=== PATIENT | female | born 1970 | race Caucasian/White ===

== ENCOUNTER → 2023-01-15 14:45 | Outpatient (BNVA) | payer OTHER, SELFPAY | PROVIDERS: PCP Nurse Practitioner; Visit Provider Nurse Practitioner Family | DX: J02.9 Acute pharyngitis, unspecified (principal) | CPT/HCPCS: 87071; 87880 ==

== ENCOUNTER 2024-01-31 07:08 | Emergency (ER) | payer BC, MEDICAID, SELFPAY ==
[2024-01-31 07:12] VITALS: BP 106/68; PULSE 100; RESP 16; TEMP 36.9; O2SAT 96; BMI 20.7
--- NOTE | 2024-01-31 07:17 | ED_ITS ---
HPI - Abdominal Pain 2 General: Chief Complaint: Abdominal Pain Stated Complaint: abd pain, chills, fever, nausea Time Seen by Provider: 01/31/24 07:11 Source: patient Mode of arrival: ambulatory History of Present Illness: 53-year-old female presents emergency ro om with abdominal pain for the last week particularly bad the last 3 days. Flulike symptoms initially localizes pain to the right lower quadrant. She has previously had a cholecystectomy. She did have some acholic stools earlier this week. No hematochezia melena hematemesis or coffee-ground emesis no dysuria urgency or frequency or hematuria. No history of kidney stones. She has previously had cholecystectomy partial resection of the pancreas and the spleen. MD elicited complaint: abdominal pain Onset (ago): day(s) Pain Consistency: constant Location: RLQ Severity: severe Quality: cramping Exacerbating factors: eating and movement Relieving factors: rest Associated Symptoms: Reports change in stool character and GI cramping; Denies anorexia, belching, bloating, change in bowel habits, chills, coffee ground emesis, constipation, diarrhea, dyspepsia, dysuria, excessive flatus, fever(s), heartburn, hematochezia, hematuria, hematemesis, fecal incontinence, loose stools, melena, nausea, poor appetite, syncope and vomiting Review of Systems 2 Const: Denies: fever(s) or chills Card: Denies: chest pain or syncope Resp: Denies: dyspnea GI: Reports: abdominal pain, GI cramping and change in stool character; Denies: nausea, vomiting, hematemesis, coffee ground emesis, heartburn, diarrhea, constipation, bloating, belching, excessive flatus, fecal incontinence, change in bowel habits, hematochezia or melena : Denies: dysuria, urinary frequency, urinary urgency or hematuria Musc: Denies: neck pain or back pain Skin/Breast: Denies: rash PFSH ED 2 PFSH: Medical History Lyme disease History of herpes simplex infection Nasal after NG tube age 15 Asthma Surgical History 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 History of cholecystectomy Family History Grandmother Dementia Mother Dementia Brother Cancer Melanoma Other Hypertension Stroke Denies family history of Diabetes Chronic kidney disease (CKD) Lung disease Social History Smoking and tobacco/nicotine status: current every day tobacco/nicotine user Second hand smoke exposure: No Alcohol intake: former Substance/Drug Use: unknown Adopted: No Caregiver/support person: No Lives independently: Yes Household members: spouse Housing: House Marital status: Number of children: 6 service: No Current occupational status: employed Current occupation: Self Pets and animals: Yes Do you think of yourself as: Straight/Heterosexual Current gender identity: Female Physical Exam 2 Const: GENERAL APPEARANCE: cooperative and comfortable O RIENTATION/CONSCIOUSNESS: Yes awake, Yes oriented to person, Yes oriented to place and Yes oriented to time HENMT: COMMON NORMALS: normocephalic, atraumatic and hearing grossly normal bilaterally HEAD & SCALP: normocephalic and atraumatic Resp: COMMON NORMALS: normal respiratory effort, No retractions, No use of accessory muscles and clear to auscultation bilaterally AUSCULTATION: clear to auscultation bilaterally Cardio: COMMON NORMALS: regular rate, regular rhythm and No murmurs present (Cardio) RATE: regular rate RHYTHM: regular rhythm GI: COMMON NORMALS: No hepatosplenomegaly present AUSCULTATION: Yes normoactive bowel sounds PALPATION: Yes Tenderness to palpation present (GI) Details: RLQ, No Guarding due to palpation present (GI) and Yes No hepatosplenomegaly present Extremity: COMMON NORMALS: normal to inspection, capillary refill normal, no clubbing, cyanosis or edema, no calf tenderness and no pedal edema Neuro: SENSORIUM/ORIENTATION: Yes oriented to person, Yes oriented to place and Yes oriented to time Skin: COMMON NORMALS: no rashes or lesions noted GENERAL SKIN EXAM: no rashes or lesions noted Course 2 Vital Signs: Vital signs: Vital Signs Temperature 98.4 F 01/31/24 07:12 Pulse Rate 85 01/31/24 11:02 Respiratory Rate 16 01/31/24 11:01 Blood Pressure 102/72 01/31/24 11:02 Pulse Oximetry 96 01/31/24 11:02 Oxygen Delivery Me thod Room Air 01/31/24 11:02 MDM - Abdominal Pain Medical Decision Making Patient has markedly elevated liver enzymes clinically appears jaundiced confirmed by laboratory studies. She has previously had a cholecystectomy she is reporting intermittent fevers over the last week cultures done lactic acid normal uric acid slightly low. Her LDH is elevated. Later in the visit the mentioned that she had several tick bites this spring tick panel will be added she. She has not had any rash. Reviewed with Dr. Tucker with Dr. Orlando are both on-call they recommend transfer because of her liver abnormalities she possibly may have an ascending cholangitis she also will need evaluation for lymphoma or leukemia. Discussed with transfer center at [facility] Dr. Corey will accept on transfer transfer via ambulance for Medical Records I reviewed the patient's medical records. Lab Data I reviewed the patient's lab results. 01/31/24 07:39 01/31/24 07:39 Labs/Radiology: Laboratory Results WBC 13.55 10^3/uL (3.29-11.43) H 01/31/24 07:39 RBC 3.56 10^6/uL (3.85-5.65) L 01/31/24 07:39 Hgb 11.60 g/dL (11.27-16.99) 01/31/24 07:39 Hct 32.9 % (36-47) L 01/31/24 07:39 MCV 92.4 fl (85-98) 01/31/24 07:39 MCH 32.6 pg (27-33) 01/31/24 07:39 MCHC 35.3 g/dL (30-55) 01/31/24 07:39 RDW 13.0 % (12.1-15.1) 01/31/24 07:39 Plt Count 96 10^3/cmm (157-399) L 01/31/24 07:39 MPV 10.0 fL (7.4-10.4) 01/31/24 07:39 Lymph % (Auto) Not Reportable 01/31/24 07:39 Cotton % (Auto) Not Reportable 01/31/24 07:39 Lymph # (Auto) Not Reportable 01/31/24 07:39 Cotton # (Auto) Not Reportable 01/31/24 07:39 Total Counted 100 (0-100) 01/31/24 07:39 Atypical Lymphs % 38.0 % (0-5) H 01/31/24 07:39 Absolute Neutrophils 1.2 10^3/cmm (1.4-6.5) L 01/31/24 07:39 Segmented Neutrophils 9 % 01/31/24 07:39 Abs Segm Neuts (Man) 1.2 10/cmm (1.6-7.1) L 01/31/24 07:39 Band Neutrophils 0.0 % 01/31/24 07:39 Abs Band Neuts (Man) 0.0 10^3/cmm (0.0-1.2) 01/31/24 07:39 Absolute Lymphocytes 11.8 10^3/cmm (1.2-3.4) H 01/31/24 07:39 Lymphocytes (Manual) 49 % 01/31/24 07:39 Monocytes (Manual) 4.0 % 01/31/24 07:39 Absolute Monocytes 0.5 10^3/cmm (0.1-0.6) 01/31/24 07:39 Eosinophils (Manual) 0 % 01/31/24 07:39 Absolute Eosinophils 0.0 10^3/cmm (0.0-0.7) 01/31/24 07:39 Basophils (Manual) 0.0 % 01/31/24 07:39 Absolute Basophils 0.0 10^3/cmm (0.0-0.2) 01/31/24 07:39 Metamyelocytes 0.0 % 01/31/24 07:39 Myelocytes 0.0 % 01/31/24 07:39 Platelet Estimate Decreased (Normal) L 01/31/24 07:39 PT 13.20 SECONDS (12.1-14.9) 01/31/24 12:33 INR 0.97 (0.8-1.2) 01/31/24 12:33 APTT 24.4 SECONDS (23.9-36.7) 01/31/24 12:33 Sodium 135 mmol/L (136-145) L 01/31/24 07:39 Potassium 3.3 mmol/L (3.5-5.1) L 01/31/24 07:39 Chloride 104 mmol/L (98-107) 01/31/24 07:39 Carbon Dioxide 22 mmol/L (22-29) 01/31/24 07:39 Anion Gap 12.3 (5-19) 01/31/24 07:39 BUN 8 mg/dL (6-20) 01/31/24 07:39 Creatinine 0.4 mg/dL (0.5-0.9) L 01/31/24 07:39 GFR Calculation 168.3 mL/min (90-130) H 01/31/24 07:39 Glucose 131 mg/dL (65-115) H 01/31/24 07:39 Calculated Osmolality 280 mOsm/kg (285-295) L 01/31/24 07:39 Lactic Acid 1.0 mmol/L (0.5-2.2) 01/31/24 11:18 Uric Acid 2.1 mg/dL (2.4-5.7) L 01/31/24 07:39 Calcium 8.2 mg/dL (8.5-10.5) L 01/31/24 07:39 Phosphorus 1.9 mg/dL (2.5-4.5) L 01/31/24 07:39 Total Bilirubin 3.1 mg/dL (0.15-1.2) H 01/31/24 07:39 AST 168 U/L (0-32) H 01/31/24 07:39 ALT 330 U/L (0-33) H 01/31/24 07:39 Alkaline Phosphatase 703 U/L (35-105) H 01/31/24 07:39 Lactate Dehydrogenase 603 U/L (135-214) H 01/31/24 07:39 Total Protein 5.3 g/dL (6.6-8.7) L 01/31/24 07:39 Albumin 3.3 g/dL (3.5-5.2) L 01/31/24 07:39 Globulin 2.0 g/dL (1.3-4.6) 01/31/24 07:39 Urine Color Yellow (Yellow) 01/31/24 07:48 Urine Appearance Clear (CLEAR) 01/31/24 07:48 Urine pH 6.5 (5-7) 01/31/24 07:48 Ur Specific [place] 1.010 (1.005-1.030) 01/31/24 07:48 Urine Protein Neg (Negative) 01/31/24 07:48 Urine Glucose (UA) Norm (Normal) 01/31/24 07:48 Urine Ketones Negative (Negative) 01/31/24 07:48 Urine Blood 2+ (Negative) H 01/31/24 07:48 Urine Nitrate Negative (Negative) 01/31/24 07:48 Urine Bilirubin 1+ (Negative) H 01/31/24 07:48 Urine Urobilinogen Neg mg/dL (Negative) 01/31/24 07:48 Ur Leukocyte Esterase Negative (Negative) 01/31/24 07:48 Urine RBC 5-10 /hpf (0-2) H 01/31/24 07:48 Urine WBC 0-4 /hpf (0-5) H 01/31/24 07:48 Ur Squamous Epith Cells 5-10 /hpf (0-5) H 01/31/24 07:48 Amorphous Sediment Not Reportable 01/31/24 07:48 Urine Bacteria 1+ /hpf (NONE) H 01/31/24 07:48 Urine Mucus Trace /hpf 01/31/24 07:48 All radiology interpretation(s) finalized by discharge Discharge Plan Discharge Patient Disposition: Xfer Short-Term Hosp Clinical Impression: Lymphocytosis, Elevated transaminase level Condition: Stable Referrals: Kia Cobb, SH[employer]EL LOADER OPERATOR-C [Primary Care Provider] - Coding Level of Care Code ED [employer] Flanger for Susan Gardiner
[2024-01-31 07:34] VITALS: PULSE 97; O2SAT 98
--- NOTE | 2024-01-31 07:36 | CT_ITS ---
WS: [id number] Examination: CT abdomen pelvis wo con [id number] Reason for Exam: Abdominal pain Date: January 31, 2024 Comparison: None. DLP: 535.[address] scans at [facility] use at least one of these dose optimization techniques: automated e xposure control; mA and/or kV adjustment per patient size (includes targeted exams where dose is matc hed to clinical indication); or iterative reconstruction. Findings: The heart is normal in size. Small bilateral pleural effusions are identified with limited basilar at electasis. The liver is mildly prominent in size. There has been a cholecystectomy. There is significant splenomegaly. No adrenal mass is identified. The kidneys are without kidney stone or hydronephrosis. The aorta is not enlarged. The pancreas is grossly unremarkable There is no small bowel obstruction. There is increased stool in the colon. The appendix is unremarka ble. There is free fluid identified within the abdomen and pelvis. No free air is identified. Numerous enlarged lymph nodes are identified throughout the abdomen/pelvis particularly mesentery. En larged inguinal lymph nodes are present. Posterior Mattock or surgical changes to the right hip are noted. Impression: Small pleural effusions are noted. There is free fluid throughout the abdomen and pelvis. There is hepatomegaly and prominent splenomegaly. Numerous abnormally enlarged lymph nodes are identified throughout the abdomen and pelvis. These findings are concerning for potential malignant disease such as lymphoma or leukemia. Infectiou s/inflammatory etiologies are also potential etiologies. I discussed these findings with Dr. Paredes in the emergency room at 8:25 a.m. January 31, 2024.
[2024-01-31 07:45] LABS: Hematocrit 32.9 % (36-47); Mean Corpuscular HGB Conc 35.3 g/dL (30-55); Mean Corpuscular Hemoglobin 32.6 pg (27-33); Mean Corpuscular Volume 92.4 fl (85-98); Platelet Count 96 10^3/cmm (157-399); Red Blood Count 3.56 10^6/uL (3.85-5.65); White Blood Count 13.55 10^3/uL (3.29-11.43)
--- NOTE | 2024-01-31 07:49 | PC.PHAR ---
pt states she takes care of her own medications-pt states she only has prescription inhalers that she uses prn-pt states takes no other prescription medications states just takes the otc meds entered
[2024-01-31 08:00] LABS: Alanine Aminotransferase 330 U/L (0-33); Albumin Level 3.3 g/dL (3.5-5.2); Alkaline Phosphatase 703 U/L (35-105); Anion Gap 12.3 (5-19); Aspartate Amino Transferase 168 U/L (0-32); Blood Urea Nitrogen 8 mg/dL (6-20); Calcium 8.2 mg/dL (8.5-10.5); Carbon Dioxide 22 mmol/L (22-29); Chloride 104 mmol/L (98-107); Creatinine Clr Calc Pharmacy 171.0562; Glomerular Filtration Rate 168.3 mL/min (90-130); Glucose 131 mg/dL (65-115); Osmolality Calculated 280 mOsm/kg (285-295); Potassium 3.3 mmol/L (3.5-5.1); Sodium 135 mmol/L (136-145); Total Bilirubin 3.1 mg/dL (0.15-1.2); Total Protein 5.3 g/dL (6.6-8.7)
[2024-01-31 08:08] LABS: Urine Appearance Clear (CLEAR); Urine Color Yellow (Yellow)
[2024-01-31 08:09] LABS: Add Urine Microscopic? YES; Bilirubin Urine 1+ (Negative); Blood Urine 2+ (Negative); Glucose Urine UA Norm (Normal); Ketones Urine Negative (Negative); Leukocyte Esterase Urine Negative (Negative); Nitrate Urine Negative (Negative); Protein Urine Neg (Negative); Urobilinogen Urine Neg (Negative); pH Urine 6.5 (5-7)
[2024-01-31 08:10] LABS: WBC Urine 0-4 /hpf (0-5)
[2024-01-31 08:11] LABS: Add Urine Culture? No; Bacteria Urine 1+ /hpf; Mucus Urine TRACE /hpf
[2024-01-31 08:25] LABS: Slide Review Slide Review Perform
[2024-01-31 08:26] LABS: Total Cells Counted 100 (0-100)
[2024-01-31 08:27] LABS: Absolute Segmented Neutrophil 1.2 10/cmm (1.6-7.1); Eosinophils 0 %; Lymphocytes 49 %; Lymphocytes Absolute 11.8 10^3/cmm (1.2-3.4); Monocytes Absolute 0.5 10^3/cmm (0.1-0.6); Segmented Neutrophils 9 %
[2024-01-31 08:28] LABS: Absolute Neutrophil 1.2 10^3/cmm (1.4-6.5); Platelet Estimate Decreased (Normal)
[2024-01-31] MEDS: ketorolac 30 mg/mL INJ IVP (08:46)
[2024-01-31 09:03] LABS: Lactate Dehydrogenase 603 U/L (135-214)
--- NOTE | 2024-01-31 09:29 | PC.NURSE ---
Medication Delay: Fortaz 2,000mg delayed d/t waiting on blood cultures to be drawn.
--- NOTE | 2024-01-31 10:25 | PC.NURSE ---
Medication Delay: Fortaz 2,000mg delayed d/t not being loaded in Pyxis, waiting on pharmacy to bring down.
[2024-01-31] MEDS: cefTAZidime 2,000 MG in sodium chloride 0.9% (plus) 50 ML 150 MG IV (10:58)
--- NOTE | 2024-01-31 10:59 | XR_ITS ---
WS: [id number] Examination: XR chest 1V portable [id number] Reason for Exam: dyspnea/cough Date: January 31, 2024 Comparison: None. Findings: The heart is not enlarged. The mediastinum not widened. The bhupinder are prominent particularly the right There is no pulmonary edema or effusion. There is no dense consolidation Impression: The bhupinder are enlarged particularly the right. Further evaluation with CT is recommended to exclude ad enopathy There is no failure or consolidation
[2024-01-31 11:01] VITALS: RESP 16; O2SAT 96
[2024-01-31] MEDS: morphine 4 mg/mL SDV 1 mL IVP (11:01)
[2024-01-31 11:02] VITALS: BP 102/72; PULSE 85; O2SAT 96
[2024-01-31 11:53] LABS: Phosphorus 1.9 mg/dL (2.5-4.5); Uric Acid 2.1 mg/dL (2.4-5.7)
[2024-01-31 12:49] LABS: INR 0.97 (0.8-1.2)
[2024-01-31 12:50] LABS: Partial Thromboplastin Time 24.4 SECONDS (23.9-36.7)
--- NOTE | 2024-01-31 13:10 | PC.NURSE ---
Report called to [facility] @[phone], no further questions at end of report.
[2024-01-31 13:27] VITALS: BP 105/76; PULSE 84; RESP 17; TEMP 36.6; O2SAT 97
[2024-01-31] MEDS: sodium chloride 0.9% 1,000 ML 999 ML IV (14:08)
[2024-01-31] MEDS: morphine 4 mg/mL SDV 1 mL 2 MG IVP (14:35)
--- NOTE | 2024-01-31 14:36 | PC.NURSE ---
Report given to [facility] @[phone], no further questions. this nurse informed nurse at [facility] update.
[2024-01-31 14:37] VITALS: BP 105/76; PULSE 84; RESP 17; TEMP 36.6; O2SAT 97
[2024-02-03 13:41] LABS: Lyme AB Screen <0.90 index
[2024-02-06 16:58] LABS: RMSF IGG NOT DETECTED; RMSF IGM NOT DETECTED
[2024-02-06 20:50] LABS: E. Chaffeensis AB IGG <1:64; E. Chaffeensis AB IGM <1:20
== END 2024-01-31 14:55 | disposition short-term general hospital (02) ==
PROVIDERS: Emergency Provider Family Medicine; PCP Nurse Practitioner
DX: D72.820 Lymphocytosis (symptomatic) (principal); R74.01 Elevation of levels of liver transaminase levels; Z72.0 Tobacco use
CPT/HCPCS: 36415; 71045; 74176; 80053; 80503; 81001; 83605; 83615; 84100; 84550; 85007; 85025; 85610; 85730; 86618; 86666; 86757; 87040; 96365; 96366; 96375; 96376; 99285; J0713; J1885; J2270; J7030

== ENCOUNTER 2024-02-22 16:02 | Emergency (ER) | payer BC, MEDICAID, SELFPAY ==
[2024-02-22 16:15] VITALS: BP 99/67; PULSE 113; RESP 17; TEMP 36.8; O2SAT 97; BMI 23.4
--- NOTE | 2024-02-22 17:30 | CTR_ITS ---
PROCEDURE INFORMATION: Exam: CT Head Without Contrast Exam date and time: 02/22/2024 5:39 PM Age: 53 years old Clinical indication: Pain; Visual disturbance; Headache not specified; Patient HX: HX lymphoma TECHNIQUE: Imaging protocol: Computed tomography of the head without contrast. Radiation optimization: All CT scans at this facility use at least one of these dose optimization techniques: automated exposure control; mA and/or kV adjustment per patient size (includes targeted exams where dose is matched to clinical indication); or iterative reconstruction. COMPARISON: No relevant prior studies available. RADIATION DOSE METRICS: Total DLP (mGy-cm): 1023.38 FINDINGS: Brain: Normal. No hemorrhage. Unremarkable white matter. No mass effect. Cerebral ventricles: No ventriculomegaly. Paranasal sinuses: Visualized sinuses are unremarkable. No fluid levels. Mastoid air cells: Visualized mastoid air cells are well aerated. Bones/joints: Unremarkable. No acute fracture. Soft tissues: Unremarkable. CT/CT head wo con* [id number] IMPRESSION: No acute intracranial abnormality.
[2024-02-22 17:47] VITALS: PULSE 97; O2SAT 98
[2024-02-22 18:00] VITALS: PULSE 96; O2SAT 99
--- NOTE | 2024-02-22 18:09 | ED_ITS ---
Documented by User: ERIS Molina 02/22/24 19:03 HPI - Headache 2 General: Chief Complaint: Headache Stated Complaint: cancer pt, blurry/double vision, head pain Time Seen by Provider: 02/22/24 17:29 Source: patient Mode of arrival: ambulatory Limitations: no limitations History of Present Illness: Patient is a 53-year-old female with pertinent medical history of chronic lymphocytic leukemia diagnosis who presents to the emergency department complaining of headache onset this morning. Patient states she awoke with a localized pain to the left parietal scalp, denies history of migraines. She is also reporting some visual changes, saying that her vision has been double and blurred. She states that she is currently receiving monthly monoclonal antibody treatment, and is due to start chemotherapy here on February 27. She states her cancer is stage III with spreading to lymph nodes and bone marrow. She denies any fever, breathing difficulties, chest pain, or other neurological deficits. MD elicited complaint: headache Pertinent past history: other (CLL) Onset (ago): hour(s) Onset description: suddenly Location: left and parietal Severity: mild Quality & Timing: aching Exacerbating factors: other (Palpation of the scalp) Context: occurred at rest Associated symptoms: Deny chest pain, fever(s), lightheadedness, nausea, rash or vomiting Review of Systems 2 General: Reports: 10 or more systems reviewed and unremarkable except in HPI and below Const: Denies: fever(s), chills or fatigue Eyes: Reports: change in vision and blurry vision ENMT: Denies: throat pain, ear or mastoid pain or nasal discharge Card: Denies: chest pain, palpitations, swelling of feet/ankles or lightheadedness Resp: Denies: dyspnea, productive cough or wheezing GI: Denies: abdominal pain, nausea, vomiting, diarrhea or constipation : Denies: flank pain, difficulty voiding, dysuria or urinary frequency Musc: Denies: neck pain, back pain or joint pain Skin/Breast: Denies: rash Neuro: Reports: headache(s); Denies: numbness in extremities or weakness in extremities PFSH ED 2 PFSH: Medical History Lyme disease History of herpes simplex infection Nasal after NG tube age 15 Asthma Surgical History 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 History of cholecystectomy Family History Grandmother Dementia Mother Dementia Brother Cancer Melanoma Other Hypertension Stroke Denies family history of Diabetes Chronic kidney disease (CKD) Lung disease Social History Smoking and tobacco/nicotine status: current every day tobacco/nicotine user Second hand smoke exposure: No Alcohol intake: former Substance/Drug Use: unknown Adopted: No Caregiver/support person: No Lives independently: Yes Household members: spouse Housing: House Marital status: Number of children: 6 service: No Current occupational status: employed Current occupation: Self Pets and animals: Yes Do you think of yourself as: Straight/Heterosexual Current gender identity: Female Physical Exam 2 Const: COMMON NORMALS: no acute distress, average body habitus, patient oriented x3, no limitations, healthy appearing, alert and well nourished G ENERAL APPEARANCE: cooperative and comfortable ORIENTATION/CONSCIOUSNESS: Yes awake HENMT: COMMON NORMALS: normocephalic, atraumatic, hearing grossly normal bilaterally, external ears normal, Normal external nose present, Normal nasal mucous membranes and turbinates present and moist oral mucous membranes HEAD & SCALP: normocephalic, atraumatic and scalp tenderness (Left parietal) FACE & SINUS: normal facial exam NOSE: Normal external nose present and Normal nasal mucous membranes and turbinates present EXTERNAL EAR: Yes external ears normal Eye: COMMON NORMALS: Equal, round and reactive pupils present, EOMs intact bilaterally, conjunctivae normal and normal visual galindo by confrontation C ONJUNCTIVA: Yes conjunctivae normal PUPIL: Yes Equal, round and reactive pupils present Neck/C-Spine: COMMON NORMALS: full ROM, supple, no meningeal signs and no JVD Resp: COMMON NORMALS: normal respiratory effort, No retractions, No use of accessory muscles and clear to auscultation bilaterally AUSCULTATION: clear to auscultation bilaterally, no crackles, no rales, no rhonchi and no wheezes Cardio: COMMON NORMALS: no JVD, regular rate, regular rhythm, S1 normal heart sound present, S2 normal heart sound present, No gallops present (Cardio), No clicks present (Cardio), No murmurs present (Cardio), No rub (Cardio) and Peripheral pulses 2+ throughout RATE: regular rate RHYTHM: regular rhythm HEART SOUNDS: S1 normal heart sound present and S2 normal heart sound present PERIPHERAL PULSES: Peripheral pulses 2+ throughout GI: COMMON NORMALS: Normal to inspection, nondistended, normoactive bowel sounds present, Soft to palpation, non-tender, No hepatosplenomegaly present and no masses AUSCULTATION: Yes normoactive bowel sounds PALPATION: Yes Soft to palpation, No Guarding due to palpation present (GI), No Rigid due to palpation and Yes No hepatosplenomegaly present RECTAL EXAM: deferred : COMMON NORMALS: Yes no CVA tenderness BLADDER/KIDNEY EXAM: Yes no CVA tenderness Back/Pelvis: COMMON NORMALS: no CVA tenderness Extremity: COMMON NORMALS: normal to inspection and full ROM Neuro: COMMON NORMALS: patient oriented x3, CN's II-XII intact bilaterally, moves all extremities, no focal motor deficits and no sensory deficits noted SENSORIUM/ORIENTATION: Yes alert MENINGEAL SIGNS: Yes no meningeal signs Psych: COMMON NORMALS: mental status grossly normal, cooperative and speech normal SPEECH: Yes normal speech Skin: COMMON NORMALS: no rashes or lesions noted GENERAL SKIN EXAM: no rashes or lesions noted Course 2 Vital Signs: Vital signs: Vital Signs Temperature 98.3 F 02/22/24 16:15 Pulse Rate 96 02/22/24 18:00 Respiratory Rate 17 02/22/24 16:15 Blood Pressure 99/67 02/22/24 16:15 Pulse Oximetry 99 02/22/24 18:00 Oxygen Delivery Me thod Room Air 02/22/24 18:00 MDM - Headache Medical Decision Making Patient seen for headache beginning this morning. She reports history of CLL in which she is about to undergo chemotherapy and is currently on monoclonal antibody treatment. She was worried that she potentially could have metastasis to the brain, and was reportedly urged to seek evaluation from [facility]. Her vitals were unremarkable and condition has remained stable throughout her ED course. Exam, including neurological evaluation, normal. She was noting some visual changes including blurred vision and double vision, though thinks this is due to the medication. CT head without contrast did not demonstrate any mass or bleeding. Her hemoglobin was found to be low, however upon rechecking her last labs at [facility] this appears to be baseline. The rest of her lab workup was essentially unremarkable. Patient's scalp was tender to palpation on exam upon recheck, and we deduced that this is possible that she pulled her hair while rolling over in bed in the middle of the night, as she relates the pain to that feeling. Due to that and normal CT head, need for further workup is not necessary at this time. Patient states she is due to begin chemotherapy on February 27, she will keep this follow-up as planned. She also is due for another dose of her monoclonal antibody which she will follow-up. Reasons to return were discussed thoroughly, to which the patient agrees and states she is ready to go home. Lab Data I reviewed the patient's lab results. 02/22/24 18:14 02/22/24 18:[address] 02/22/24 17:30 IMPRESSION: No acute intracranial abnormality. Laboratory Results WBC 3.89 10^3/uL (3.29-11.43) 02/22/24 18:14 RBC 3.07 10^6/uL (3.85-5.65) L 02/22/24 18:14 Hgb 9.90 g/dL (11.27-16.99) L 02/22/24 18:14 Hct 28.6 % (36-47) L 02/22/24 18:14 MCV 93.2 fl (85-98) 02/22/24 18:14 MCH 32.2 pg (27-33) 02/22/24 18:14 MCHC 34.6 g/dL (30-55) 02/22/24 18:14 RDW 13.0 % (12.1-15.1) 02/22/24 18:14 Plt Count 170 10^3/cmm (157-399) 02/22/24 18:14 MPV 9.2 fL (7.4-10.4) 02/22/24 18:14 Neut % (Auto) 41.7 % 02/22/24 18:14 Lymph % (Auto) 43.2 % 02/22/24 18:14 Newton % (Auto) 7.7 % 02/22/24 18:14 Eos % (Auto) 4.1 % 02/22/24 18:14 Baso % (Auto) 1.8 % 02/22/24 18:14 Neut # (Auto) 1.62 10^3/uL (1.8-7.7) L 02/22/24 18:14 Lymph # (Auto) 1.7 10^3/uL (0.8-4.8) 02/22/24 18:14 Newton # (Auto) 0.3 10^3/uL (0.2-0.9) 02/22/24 18:14 Eos # (Auto) 0.2 10^3/uL (0.0-0.8) 02/22/24 18:14 Baso # (Auto) 0.1 10^3/uL (0.0-0.1) 02/22/24 18:14 Nucleated RBC % (auto) 0 % 02/22/24 18:14 Nucleated RBCs # 0.0 /100WBC 02/22/24 18:14 Sodium 138 mmol/L (136-145) 02/22/24 18:14 Potassium 4.0 mmol/L (3.5-5.1) 02/22/24 18:14 Chloride 106 mmol/L (98-107) 02/22/24 18:14 Carbon Dioxide 22 mmol/L (22-29) 02/22/24 18:14 Anion Gap 14.0 (5-19) 02/22/24 18:14 BUN 16 mg/dL (6-20) 02/22/24 18:14 Creatinine 0.6 mg/dL (0.5-0.9) 02/22/24 18:14 GFR Calculation 105.4 mL/min (90-130) 02/22/24 18:14 Glucose 97 mg/dL (65-115) 02/22/24 18:14 Calculated Osmolality 287 mOsm/kg (285-295) 02/22/24 18:14 Lactic Acid 0.7 mmol/L (0.5-2.2) 02/22/24 18:14 Calcium 7.8 mg/dL (8.5-10.5) L 02/22/24 18:14 Total Bilirubin 0.6 mg/dL (0.15-1.2) 02/22/24 18:14 AST 14 U/L (0-32) 02/22/24 18:14 ALT 22 U/L (0-33) 02/22/24 18:14 Alkaline Phosphatase 129 U/L (35-105) H 02/22/24 18:14 C-Reactive Protein 8.6 mg/L (0.0-4.9) H 02/22/24 18:14 Total Protein 5.5 g/dL (6.6-8.7) L 02/22/24 18:14 Albumin 3.6 g/dL (3.5-5.2) 02/22/24 18:14 Globulin 1.9 g/dL (1.3-4.6) 02/22/24 18:14 Urine Color Yellow (Yellow) 02/22/24 18:00 Urine Appearance Clear (CLEAR) 02/22/24 18:00 Urine pH 6 (5-7) 02/22/24 18:00 Ur Specific [place] 1.020 (1.005-1.030) 02/22/24 18:00 Urine Protein Neg (Negative) 02/22/24 18:00 Urine Glucose (UA) Norm (Normal) 02/22/24 18:00 Urine Ketones Negative (Negative) 02/22/24 18:00 Urine Blood Neg (Negative) 02/22/24 18:00 Urine Nitrate Negative (Negative) 02/22/24 18:00 Urine Bilirubin Neg (Negative) 02/22/24 18:00 Urine Urobilinogen Norm mg/dL (Negative) 02/22/24 18:00 Ur Leukocyte Esterase Negative (Negative) 02/22/24 18:00 Urine RBC None /hpf (0-2) 02/22/24 18:00 Urine WBC None /hpf (0-5) 02/22/24 18:00 Ur Squamous Epith Cells 0-4 /hpf (0-5) H 02/22/24 18:00 Amorphous Sediment Not Reportable 02/22/24 18:00 Urine Bacteria 1+ /hpf (NONE) H 02/22/24 18:00 Adenovirus (PCR) Not detected (NOT DETECT) 02/22/24 17:37 C. pneumoniae DNA (PCR) Not detected (NOT DETECT) 02/22/24 17:37 Coronavirus 229E (PCR) Not detected (NOT DETECT) 02/22/24 17:37 Human Metapneumovir PCR Not detected (NOT DETECT) 02/22/24 17:37 Influenza A (H1) PCR Not detected (NOT DETECT) 02/22/24 17:37 Influ A (H1/09) PCR Not detected (NOT DETECT) 02/22/24 17:37 Influenza A (H3) PCR Not detected (NOT DETECT) 02/22/24 17:37 Influenza Type A (PCR) Not detected (NOT DETECT) 02/22/24 17:37 Influenza Type B (PCR) Not detected (NOT DETECT) 02/22/24 17:37 M. pneumoniae (PCR) Not detected (NOT DETECT) 02/22/24 17:37 Parainfluenza 1 (PCR) Not detected (NOT DETECT) 02/22/24 17:37 Parainfluenza 2 (PCR) Not detected (NOT DETECT) 02/22/24 17:37 Parainfluenza 3 (PCR) Not detected (NOT DETECT) 02/22/24 17:37 Parainfluenza 4 (PCR) Not detected (NOT DETECT) 02/22/24 17:37 RSV Type A (PCR) Not detected (NOT DETECT) 02/22/24 17:37 RSV Type B (PCR) Not detected (NOT DETECT) 02/22/24 17:37 Entero/Rhino (PCR) Not detected (NOT DETECT) 02/22/24 17:37 SARS-CoV-2 (PCR) Not detected (NOT DETECT) 02/22/24 17:37 All radiology interpretation(s) finalized by discharge Discharge Plan Discharge Patient Disposition: Home Clinical Impression: Headache Qualifiers: Headache type: unspecified Headache chronicity pattern: acute headache I ntractability: not intractable Qualified Code(s): R51.9 - Headache, unspecified Condition: Stable Prescriptions: No Action lysine [L-Lysine] 500 mg tablet 500 mg PO DAILY albuterol sulfate 90 mcg/actuation HFA aerosol inhaler 2 puff inhalation Q6H PRN (Reason: shortness of breath or wheezing) Qty: 8.5 5RF Flovent HFA 110 mcg/actuation HFA aerosol inhaler 2 puff INHALATION BID PRN (Reason: Shortness Of Breath) PreserVision AREDS 2,148 mcg-113 mg-45 mg-17.4mg Tablet 1 tab PO DAILY Kratom Powder See Rx Instructions .ROUTE .COMPLEX Rx Instructions: as directed as needed Oil Of Oregano 1 cap PO BID Discharge Orders: Discharge ED (Routine); Ordered 02/22/24 Ordered By: Ortiz Duncan Referrals: Kia Cobb, CHRIS [Primary Care Provider] - Discharge Diet: Usual diet Discharge Activity: Resume usual activity Patient Instructions: Acute Headache (ED) Activity Restrictions/Additional Instructions: Increase your fluid intake. Continue appointment to begin chemotherapy as planned. Follow-up with primary care or oncology as needed. Please return if you develop any new or concerning symptoms. Coding Level of Care Code ED Publishing Systems Analyst for [facility] [facility] Documented by User: René Paredes DO 02/26/24 09:09 HPI - Headache 2 General: Chief Complaint: Headache Stated Complaint: cancer pt, blurry/double vision, head pain Time Seen by Provider: 02/22/24 17:29 PFSH ED 2 PFSH: Medical History Lyme disease History of herpes simplex infection Nasal after NG tube age 15 Asthma Surgical History 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 History of cholecystectomy Family History Grandmother Dementia Mother Dementia Brother Cancer Melanoma Other Hypertension Stroke Denies family history of Diabetes Chronic kidney disease (CKD) Lung disease Social History Smoking and tobacco/nicotine status: current every day tobacco/nicotine user Second hand smoke exposure: No Alcohol intake: former Substance/Drug Use: unknown Adopted: No Caregiver/support person: No Lives independently: Yes Household members: spouse Housing: House Marital status: Number of children: 6 service: No Current occupational status: employed Current occupation: Self Pets and animals: Yes Do you think of yourself as: Straight/Heterosexual Current gender identity: Female Course 2 Vital Signs: Vital signs: Vital Signs Temperature 98.3 F 02/22/24 16:15 Pulse Rate 96 02/22/24 18:00 Respiratory Rate 17 02/22/24 16:15 Blood Pressure 99/67 02/22/24 16:15 Pulse Oximetry 99 02/22/24 18:00 Oxygen Delivery Me thod Room Air 02/22/24 18:00 MDM - Headache Medical Decision Making Patient seen for headache beginning this morning. She reports history of CLL in which she is about to undergo chemotherapy and is currently on monoclonal antibody treatment. She was worried that she potentially could have metastasis to the brain, and was reportedly urged to seek evaluation from [facility]. Her vitals were unremarkable and condition has remained stable throughout her ED course. Exam, including neurological evaluation, normal. She was noting some visual changes including blurred vision and double vision, though thinks this is due to the medication. CT head without contrast did not demonstrate any mass or bleeding. Her hemoglobin was found to be low, however upon rechecking her last labs at [facility] this appears to be baseline. The rest of her lab workup was essentially unremarkable. Patient's scalp was tender to palpation on exam upon recheck, and we deduced that this is possible that she pulled her hair while rolling over in bed in the middle of the night, as she relates the pain to that feeling. Due to that and normal CT head, need for further workup is not necessary at this time. Patient states she is due to begin chemotherapy on February 27, she will keep this follow-up as planned. She also is due for another dose of her monoclonal antibody which she will follow-up. Reasons to return were discussed thoroughly, to which the patient agrees and states she is ready to go home. Chart reviewed Lab Data 02/22/24 18:14 02/22/24 18:[address] 02/22/24 17:30 IMPRESSION: No acute intracranial abnormality. Laboratory Results WBC 3.89 10^3/uL (3.29-11.43) 02/22/24 18:14 RBC 3.07 10^6/uL (3.85-5.65) L 02/22/24 18:14 Hgb 9.90 g/dL (11.27-16.99) L 02/22/24 18:14 Hct 28.6 % (36-47) L 02/22/24 18:14 MCV 93.2 fl (85-98) 02/22/24 18:14 MCH 32.2 pg (27-33) 02/22/24 18:14 MCHC 34.6 g/dL (30-55) 02/22/24 18:14 RDW 13.0 % (12.1-15.1) 02/22/24 18:14 Plt Count 170 10^3/cmm (157-399) 02/22/24 18:14 MPV 9.2 fL (7.4-10.4) 02/22/24 18:14 Neut % (Auto) 41.7 % 02/22/24 18:14 Lymph % (Auto) 43.2 % 02/22/24 18:14 Newton % (Auto) 7.7 % 02/22/24 18:14 Eos % (Auto) 4.1 % 02/22/24 18:14 Baso % (Auto) 1.8 % 02/22/24 18:14 Neut # (Auto) 1.62 10^3/uL (1.8-7.7) L 02/22/24 18:14 Lymph # (Auto) 1.7 10^3/uL (0.8-4.8) 02/22/24 18:14 Newton # (Auto) 0.3 10^3/uL (0.2-0.9) 02/22/24 18:14 Eos # (Auto) 0.2 10^3/uL (0.0-0.8) 02/22/24 18:14 Baso # (Auto) 0.1 10^3/uL (0.0-0.1) 02/22/24 18:14 Nucleated RBC % (auto) 0 % 02/22/24 18:14 Nucleated RBCs # 0.0 /100WBC 02/22/24 18:14 Sodium 138 mmol/L (136-145) 02/22/24 18:14 Potassium 4.0 mmol/L (3.5-5.1) 02/22/24 18:14 Chloride 106 mmol/L (98-107) 02/22/24 18:14 Carbon Dioxide 22 mmol/L (22-29) 02/22/24 18:14 Anion Gap 14.0 (5-19) 02/22/24 18:14 BUN 16 mg/dL (6-20) 02/22/24 18:14 Creatinine 0.6 mg/dL (0.5-0.9) 02/22/24 18:14 GFR Calculation 105.4 mL/min (90-130) 02/22/24 18:14 Glucose 97 mg/dL (65-115) 02/22/24 18:14 Calculated Osmolality 287 mOsm/kg (285-295) 02/22/24 18:14 Lactic Acid 0.7 mmol/L (0.5-2.2) 02/22/24 18:14 Calcium 7.8 mg/dL (8.5-10.5) L 02/22/24 18:14 Total Bilirubin 0.6 mg/dL (0.15-1.2) 02/22/24 18:14 AST 14 U/L (0-32) 02/22/24 18:14 ALT 22 U/L (0-33) 02/22/24 18:14 Alkaline Phosphatase 129 U/L (35-105) H 02/22/24 18:14 C-Reactive Protein 8.6 mg/L (0.0-4.9) H 02/22/24 18:14 Total Protein 5.5 g/dL (6.6-8.7) L 02/22/24 18:14 Albumin 3.6 g/dL (3.5-5.2) 02/22/24 18:14 Globulin 1.9 g/dL (1.3-4.6) 02/22/24 18:14 Urine Color Yellow (Yellow) 02/22/24 18:00 Urine Appearance Clear (CLEAR) 02/22/24 18:00 Urine pH 6 (5-7) 02/22/24 18:00 Ur Specific [place] 1.020 (1.005-1.030) 02/22/24 18:00 Urine Protein Neg (Negative) 02/22/24 18:00 Urine Glucose (UA) Norm (Normal) 02/22/24 18:00 Urine Ketones Negative (Negative) 02/22/24 18:00 Urine Blood Neg (Negative) 02/22/24 18:00 Urine Nitrate Negative (Negative) 02/22/24 18:00 Urine Bilirubin Neg (Negative) 02/22/24 18:00 Urine Urobilinogen Norm mg/dL (Negative) 02/22/24 18:00 Ur Leukocyte Esterase Negative (Negative) 02/22/24 18:00 Urine RBC None /hpf (0-2) 02/22/24 18:00 Urine WBC None /hpf (0-5) 02/22/24 18:00 Ur Squamous Epith Cells 0-4 /hpf (0-5) H 02/22/24 18:00 Amorphous Sediment Not Reportable 02/22/24 18:00 Urine Bacteria 1+ /hpf (NONE) H 02/22/24 18:00 Adenovirus (PCR) Not detected (NOT DETECT) 02/22/24 17:37 C. pneumoniae DNA (PCR) Not detected (NOT DETECT) 02/22/24 17:37 Coronavirus 229E (PCR) Not detected (NOT DETECT) 02/22/24 17:37 Human Metapneumovir PCR Not detected (NOT DETECT) 02/22/24 17:37 Influenza A (H1) PCR Not detected (NOT DETECT) 02/22/24 17:37 Influ A (H1/09) PCR Not detected (NOT DETECT) 02/22/24 17:37 Influenza A (H3) PCR Not detected (NOT DETECT) 02/22/24 17:37 Influenza Type A (PCR) Not detected (NOT DETECT) 02/22/24 17:37 Influenza Type B (PCR) Not detected (NOT DETECT) 02/22/24 17:37 M. pneumoniae (PCR) Not detected (NOT DETECT) 02/22/24 17:37 Parainfluenza 1 (PCR) Not detected (NOT DETECT) 02/22/24 17:37 Parainfluenza 2 (PCR) Not detected (NOT DETECT) 02/22/24 17:37 Parainfluenza 3 (PCR) Not detected (NOT DETECT) 02/22/24 17:37 Parainfluenza 4 (PCR) Not detected (NOT DETECT) 02/22/24 17:37 RSV Type A (PCR) Not detected (NOT DETECT) 02/22/24 17:37 RSV Type B (PCR) Not detected (NOT DETECT) 02/22/24 17:37 Entero/Rhino (PCR) Not detected (NOT DETECT) 02/22/24 17:37 SARS-CoV-2 (PCR) Not detected (NOT DETECT) 02/22/24 17:37 Discharge Plan Discharge Patient Disposition: Home Clinical Impression: Headache Qualifiers: Headache type: unspecified Headache chronicity pattern: acute headache I ntractability: not intractable Qualified Code(s): R51.9 - Headache, unspecified Condition: Stable Prescriptions: No Action lysine [L-Lysine] 500 mg tablet 500 mg PO DAILY albuterol sulfate 90 mcg/actuation HFA aerosol inhaler 2 puff inhalation Q6H PRN (Reason: shortness of breath or wheezing) Qty: 8.5 5RF Flovent HFA 110 mcg/actuation HFA aerosol inhaler 2 puff INHALATION BID PRN (Reason: Shortness Of Breath) PreserVision AREDS 2,148 mcg-113 mg-45 mg-17.4mg Tablet 1 tab PO DAILY Kratom Powder See Rx Instructions .ROUTE .COMPLEX Rx Instructions: as directed as needed Oil Of Oregano 1 cap PO BID Discharge Orders: Discharge ED (Routine); Ordered 02/22/24 Ordered By: Ortiz Duncan Referrals: Kia Cobb, [facility] [Primary Care Provider] - Discharge Diet: Usual diet Discharge Activity: Resume usual activity Patient Instructions: Acute Headache (ED) Activity Restrictions/Additional Instructions: Increase your fluid intake. Continue appointment to begin chemotherapy as planned. Follow-up with primary care or oncology as needed. Please return if you develop any new or concerning symptoms. Coding Level of Care Code ED Publishing Systems Analyst for Susan Gardiner
[2024-02-22 18:16] LABS: Add Urine Culture? No; Bacteria Urine 1+ /hpf; Bilirubin Urine Neg (Negative); Blood Urine Neg (Negative); Glucose Urine UA Norm (Normal); Ketones Urine Negative (Negative); Leukocyte Esterase Urine Negative (Negative); Nitrate Urine Negative (Negative); Protein Urine Neg (Negative); Squamous Epithelial Cell Urine 0-4 /hpf (0-5); Urine Appearance Clear (CLEAR); Urine Color Yellow (Yellow); Urobilinogen Urine Norm (Negative); pH Urine 6 (5-7)
[2024-02-22 18:20] LABS: Basophils # 0.1 10^3/uL (0.0-0.1); Basophils % 1.8 %; Eosinophils # 0.2 10^3/uL (0.0-0.8); Eosinophils % 4.1 %; Hematocrit 28.6 % (36-47); Lymphocytes # 1.7 10^3/uL (0.8-4.8); Lymphocytes % 43.2 %; Mean Corpuscular HGB Conc 34.6 g/dL (30-55); Mean Corpuscular Hemoglobin 32.2 pg (27-33); Mean Corpuscular Volume 93.2 fl (85-98); Mean Platelet Volume 9.2 fL (7.4-10.4); Monocytes # 0.3 10^3/uL (0.2-0.9); Monocytes % 7.7 %; Neutrophils # 1.62 10^3/uL (1.8-7.7); Neutrophils % 41.7 %; Nucleated Red Blood Cells % 0 %; Platelet Count 170 10^3/cmm (157-399); Red Blood Count 3.07 10^6/uL (3.85-5.65); White Blood Count 3.89 10^3/uL (3.29-11.43)
[2024-02-22 18:40] LABS: Alanine Aminotransferase 22 U/L (0-33); Albumin Level 3.6 g/dL (3.5-5.2); Alkaline Phosphatase 129 U/L (35-105); Aspartate Amino Transferase 14 U/L (0-32); Blood Urea Nitrogen 16 mg/dL (6-20); C Reactive Protein 8.6 mg/L (0.0-4.9); Calcium 7.8 mg/dL (8.5-10.5); Carbon Dioxide 22 mmol/L (22-29); Chloride 106 mmol/L (98-107); Creatinine Clr Calc Pharmacy 116.0688; Globulin 1.9 g/dL (1.3-4.6); Glomerular Filtration Rate 105.4 mL/min (90-130); Glucose 97 mg/dL (65-115); Osmolality Calculated 287 mOsm/kg (285-295); Sodium 138 mmol/L (136-145); Total Bilirubin 0.6 mg/dL (0.15-1.2); Total Protein 5.5 g/dL (6.6-8.7)
[2024-02-22 18:41] LABS: Lactic Sepsis W/Reflex 0.7 mmol/L (0.5-2.2)
[2024-02-22 19:30] LABS: Adenovirus Not Detected (NOT DETECT); Chlamydia Pneumoniae Not Detected (NOT DETECT); Coronavirus 229E,HKU1,NL63,OC4 Not Detected (NOT DETECT); Human Metapneumovirus Not Detected (NOT DETECT); Human Rhinovirus/Enterovirus Not Detected (NOT DETECT); Influenza A Not Detected (NOT DETECT); Influenza A H1 Not Detected (NOT DETECT); Influenza A H1-2009 Not Detected (NOT DETECT); Influenza A H3 Not Detected (NOT DETECT); Influenza B Not Detected (NOT DETECT); Mycoplasma Pneumoniae Not Detected (NOT DETECT); Parainfluenza Virus Type 1 Not Detected (NOT DETECT); Parainfluenza Virus Type 2 Not Detected (NOT DETECT); Parainfluenza Virus Type 3 Not Detected (NOT DETECT); Parainfluenza Virus Type 4 Not Detected (NOT DETECT); Respiratory Syncytial Virus A Not Detected (NOT DETECT); Respiratory Syncytial Virus B Not Detected (NOT DETECT); SARS-COV-2 Not Detected (NOT DETECT)
== END 2024-02-22 19:15 | disposition home or self-care (01) ==
PROVIDERS: Emergency Medicine; Emergency Provider Physician Assistant; PCP Nurse Practitioner
DX: R51.9 Headache, unspecified (principal); Z11.52 Encounter for screening for COVID-19; Z72.0 Tobacco use
CPT/HCPCS: 36415; 70450; 80053; 81001; 83605; 85025; 86140; 87486; 87581; 87633; 99284

== ENCOUNTER 2024-03-25 10:30 | Oncology outpatient (recurring) (ONCR) | payer BC, MEDICAID, SELFPAY ==
[2024-02-26 07:57] LABS: Basophils # 0.1 10^3/uL (0.0-0.1); Basophils % 1.3 %; Eosinophils # 0.2 10^3/uL (0.0-0.8); Eosinophils % 3.6 %; Hematocrit 28.1 % (36-47); Lymphocytes % 37.4 %; Mean Corpuscular HGB Conc 34.2 g/dL (30-55); Mean Corpuscular Hemoglobin 31.9 pg (27-33); Mean Corpuscular Volume 93.4 fl (85-98); Mean Platelet Volume 8.8 fL (7.4-10.4); Monocytes # 0.4 10^3/uL (0.2-0.9); Monocytes % 7.9 %; Neutrophils # 2.53 10^3/uL (1.8-7.7); Neutrophils % 48.6 %; Nucleated Red Blood Cells % 0 %; Platelet Count 213 10^3/cmm (157-399); Red Blood Count 3.01 10^6/uL (3.85-5.65); White Blood Count 5.21 10^3/uL (3.29-11.43)
[2024-02-26 08:15] LABS: Anion Gap 12.4 (5-19); Blood Urea Nitrogen 16 mg/dL (6-20); Calcium 8.2 mg/dL (8.5-10.5); Carbon Dioxide 23 mmol/L (22-29); Chloride 105 mmol/L (98-107); Glomerular Filtration Rate 105.4 mL/min (90-130); Glucose 93 mg/dL (65-115); Lactate Dehydrogenase 299 U/L (135-214); Osmolality Calculated 283 mOsm/kg (285-295); Phosphorus 3.6 mg/dL (2.5-4.5); Potassium 4.4 mmol/L (3.5-5.1); Sodium 136 mmol/L (136-145)
[2024-02-26 14:33] LABS: Anion Gap 13.3 (5-19); Blood Urea Nitrogen 15 mg/dL (6-20); Calcium 8.1 mg/dL (8.5-10.5); Carbon Dioxide 23 mmol/L (22-29); Chloride 108 mmol/L (98-107); Glomerular Filtration Rate 105.4 mL/min (90-130); Glucose 114 mg/dL (65-115); Lactate Dehydrogenase 311 U/L (135-214); Osmolality Calculated 292 mOsm/kg (285-295); Phosphorus 4.2 mg/dL (2.5-4.5); Potassium 4.3 mmol/L (3.5-5.1); Sodium 140 mmol/L (136-145); Uric Acid 3.4 mg/dL (2.4-5.7)
[2024-02-27 08:11] LABS: Anion Gap 13.2 (5-19); Blood Urea Nitrogen 12 mg/dL (6-20); Calcium 8.4 mg/dL (8.5-10.5); Carbon Dioxide 22 mmol/L (22-29); Chloride 105 mmol/L (98-107); Glomerular Filtration Rate 105.4 mL/min (90-130); Glucose 122 mg/dL (65-115); Lactate Dehydrogenase 281 U/L (135-214); Osmolality Calculated 283 mOsm/kg (285-295); Phosphorus 3.5 mg/dL (2.5-4.5); Potassium 4.2 mmol/L (3.5-5.1); Sodium 136 mmol/L (136-145); Uric Acid 4.8 mg/dL (2.4-5.7)
[2024-03-05 08:12] LABS: Basophils % 0.2 %; Hematocrit 25.7 % (36-47); Lymphocytes # 1.5 10^3/uL (0.8-4.8); Lymphocytes % 27.9 %; Mean Corpuscular Hemoglobin 32.8 pg (27-33); Mean Corpuscular Volume 93.8 fl (85-98); Mean Platelet Volume 8.5 fL (7.4-10.4); Monocytes # 0.6 10^3/uL (0.2-0.9); Monocytes % 10.2 %; Neutrophils # 3.32 10^3/uL (1.8-7.7); Neutrophils % 61.3 %; Nucleated Red Blood Cells % 0 %; Platelet Count 251 10^3/cmm (157-399); Red Blood Count 2.74 10^6/uL (3.85-5.65); Red Cell Distribution Width 13.7 % (12.1-15.1); White Blood Count 5.41 10^3/uL (3.29-11.43)
[2024-03-05 08:28] LABS: Anion Gap 14.1 (5-19); Blood Urea Nitrogen 18 mg/dL (6-20); Calcium 8.5 mg/dL (8.5-10.5); Carbon Dioxide 20 mmol/L (22-29); Chloride 105 mmol/L (98-107); Glomerular Filtration Rate 129.6 mL/min (90-130); Glucose 113 mg/dL (65-115); Lactate Dehydrogenase 157 U/L (135-214); Osmolality Calculated 283 mOsm/kg (285-295); Phosphorus 2.9 mg/dL (2.5-4.5); Potassium 4.1 mmol/L (3.5-5.1); Sodium 135 mmol/L (136-145); Uric Acid 2.6 mg/dL (2.4-5.7)
[2024-03-11 13:57] LABS: Basophils % 0.5 %; Eosinophils % 0.7 %; Hematocrit 32.7 % (36-47); Mean Corpuscular HGB Conc 33.9 g/dL (30-55); Mean Corpuscular Volume 97.3 fl (85-98); Mean Platelet Volume 8.6 fL (7.4-10.4); Monocytes # 0.3 10^3/uL (0.2-0.9); Neutrophils # 2.06 10^3/uL (1.8-7.7); Neutrophils % 46.6 %; Nucleated Red Blood Cells % 0 %; Platelet Count 237 10^3/cmm (157-399); Red Blood Count 3.36 10^6/uL (3.85-5.65); Red Cell Distribution Width 14.1 % (12.1-15.1); White Blood Count 4.42 10^3/uL (3.29-11.43)
[2024-03-11 14:24] LABS: Alanine Aminotransferase 17 U/L (0-33); Albumin Level 4.1 g/dL (3.5-5.2); Alkaline Phosphatase 63 U/L (35-105); Anion Gap 13.2 (5-19); Aspartate Amino Transferase 17 U/L (0-32); Blood Urea Nitrogen 9 mg/dL (6-20); Calcium 8.4 mg/dL (8.5-10.5); Carbon Dioxide 25 mmol/L (22-29); Chloride 106 mmol/L (98-107); Chol HDL Ratio 2.98 mg/dL (0.0-4.40); Cholesterol 158 mg/dL (0-200); Globulin 2.1 g/dL (1.3-4.6); Glucose 92 mg/dL (65-115); HDL Cholesterol 53 mg/dL (60-100); LDL Cholesterol Calculated 91 mg/dL (50-129); Lactate Dehydrogenase 149 U/L (135-214); Osmolality Calculated 288 mOsm/kg (285-295); Phosphorus 3.3 mg/dL (2.5-4.5); Potassium 4.2 mmol/L (3.5-5.1); Sodium 140 mmol/L (136-145); Thyroid Stimulating Hormone 0.91 uIU/mL (0.27-4.20); Total Bilirubin 0.5 mg/dL (0.15-1.2); Total Protein 6.2 g/dL (6.6-8.7); Triglycerides 71 mg/dL (0-150); Uric Acid 3.4 mg/dL (2.4-5.7); VLDL Cholestrol Calculation 14 mg/dL (0-30)
[2024-03-18 09:06] VITALS: BP 91/60; PULSE 86; RESP 18; TEMP 36.4; O2SAT 96
[2024-03-18 09:43] LABS: Alanine Aminotransferase 17 U/L (0-33); Albumin Level 4.1 g/dL (3.5-5.2); Alkaline Phosphatase 59 U/L (35-105); Anion Gap 15.2 (5-19); Aspartate Amino Transferase 15 U/L (0-32); Blood Urea Nitrogen 15 mg/dL (6-20); Calcium 9.1 mg/dL (8.5-10.5); Carbon Dioxide 21 mmol/L (22-29); Chloride 105 mmol/L (98-107); Globulin 2.3 g/dL (1.3-4.6); Glomerular Filtration Rate 87.9 mL/min (90-130); Glucose 152 mg/dL (65-115); Lactate Dehydrogenase 119 U/L (135-214); Osmolality Calculated 288 mOsm/kg (285-295); Potassium 4.2 mmol/L (3.5-5.1); Sodium 137 mmol/L (136-145); Total Bilirubin 0.5 mg/dL (0.15-1.2); Total Protein 6.4 g/dL (6.6-8.7); Uric Acid 3.2 mg/dL (2.4-5.7)
[2024-03-25 10:45] LABS: Basophils % 0.3 %; Hematocrit 31.9 % (36-47); Lymphocytes # 1.5 10^3/uL (0.8-4.8); Lymphocytes % 37.3 %; Mean Corpuscular HGB Conc 33.9 g/dL (30-55); Mean Corpuscular Hemoglobin 33.5 pg (27-33); Mean Corpuscular Volume 99.1 fl (85-98); Mean Platelet Volume 8.6 fL (7.4-10.4); Monocytes # 0.4 10^3/uL (0.2-0.9); Neutrophils # 2.08 10^3/uL (1.8-7.7); Neutrophils % 52.1 %; Nucleated Red Blood Cells % 0 %; Platelet Count 263 10^3/cmm (157-399); Red Blood Count 3.22 10^6/uL (3.85-5.65); Red Cell Distribution Width 12.9 % (12.1-15.1); White Blood Count 3.99 10^3/uL (3.29-11.43)
[2024-03-25 11:09] LABS: Alanine Aminotransferase 53 U/L (0-33); Albumin Level 4.1 g/dL (3.5-5.2); Alkaline Phosphatase 117 U/L (35-105); Anion Gap 13.4 (5-19); Aspartate Amino Transferase 16 U/L (0-32); Blood Urea Nitrogen 14 mg/dL (6-20); Calcium 8.1 mg/dL (8.5-10.5); Carbon Dioxide 24 mmol/L (22-29); Chloride 106 mmol/L (98-107); Globulin 2.1 g/dL (1.3-4.6); Glucose 94 mg/dL (65-115); Osmolality Calculated 288 mOsm/kg (285-295); Phosphorus 4.2 mg/dL (2.5-4.5); Potassium 4.4 mmol/L (3.5-5.1); Sodium 139 mmol/L (136-145); Total Bilirubin 0.3 mg/dL (0.15-1.2); Total Protein 6.2 g/dL (6.6-8.7); Uric Acid 2.6 mg/dL (2.4-5.7)
== END 2024-03-27 23:59 | disposition home or self-care (01) ==
PROVIDERS: PCP Nurse Practitioner; Visit Provider Internal Medicine Medical Oncology
DX: Z53.9 Procedure and treatment not carried out, unspecified reason (principal); C91.10 Chronic lymphocytic leukemia of B-cell type not having achieved remission
CPT/HCPCS: 36415; 80048; 80053; 80061; 83615; 84100; 84443; 84550; 85025

== ENCOUNTER 2024-05-06 07:40 | Oncology outpatient (recurring) (ONCR) | payer BC, MEDICAID, SELFPAY ==
[2024-04-29 09:43] LABS: Basophils % 0.2 %; Hematocrit 36.8 % (36-47); Lymphocytes # 1.7 10^3/uL (0.8-4.8); Mean Corpuscular HGB Conc 33.7 g/dL (30-55); Mean Corpuscular Hemoglobin 31.9 pg (27-33); Mean Corpuscular Volume 94.6 fl (85-98); Monocytes # 0.4 10^3/uL (0.2-0.9); Monocytes % 9.5 %; Neutrophils # 2.01 10^3/uL (1.8-7.7); Neutrophils % 49.1 %; Nucleated Red Blood Cells % 0 %; Platelet Count 207 10^3/cmm (157-399); Red Blood Count 3.89 10^6/uL (3.85-5.65); Red Cell Distribution Width 11.4 % (12.1-15.1)
[2024-04-29 10:01] LABS: Alanine Aminotransferase 11 U/L (0-33); Albumin Level 4.4 g/dL (3.5-5.2); Alkaline Phosphatase 57 U/L (35-105); Anion Gap 13.3 (5-19); Aspartate Amino Transferase 14 U/L (0-32); Blood Urea Nitrogen 12 mg/dL (6-20); Calcium 8.8 mg/dL (8.5-10.5); Carbon Dioxide 25 mmol/L (22-29); Chloride 105 mmol/L (98-107); Creatinine Clr Calc Pharmacy 97.8313; Globulin 2.3 g/dL (1.3-4.6); Glomerular Filtration Rate 87.9 mL/min (90-130); Glucose 105 mg/dL (65-115); Lactate Dehydrogenase 129 U/L (135-214); Osmolality Calculated 288 mOsm/kg (285-295); Potassium 4.3 mmol/L (3.5-5.1); Sodium 139 mmol/L (136-145); Total Bilirubin 0.2 mg/dL (0.15-1.2); Total Protein 6.7 g/dL (6.6-8.7)
[2024-05-06] VITALS (10 sets, daily range): BP systolic 77–112; BP diastolic 42–89; PULSE 64–91; RESP 16–18; TEMP 36–36.5; O2SAT 92–98
[2024-05-06 08:10] LABS: Basophils % 0.3 %; Hematocrit 35.3 % (36-47); Lymphocytes # 1.5 10^3/uL (0.8-4.8); Lymphocytes % 41.9 %; Mean Corpuscular HGB Conc 35.1 g/dL (30-55); Mean Corpuscular Hemoglobin 32.4 pg (27-33); Mean Corpuscular Volume 92.2 fl (85-98); Mean Platelet Volume 9.4 fL (7.4-10.4); Monocytes # 0.3 10^3/uL (0.2-0.9); Monocytes % 9.8 %; Neutrophils # 1.65 10^3/uL (1.8-7.7); Neutrophils % 47.7 %; Nucleated Red Blood Cells % 0 %; Platelet Count 239 10^3/cmm (157-399); Red Blood Count 3.83 10^6/uL (3.85-5.65); Red Cell Distribution Width 11.2 % (12.1-15.1); White Blood Count 3.46 10^3/uL (3.29-11.43)
[2024-05-06 08:27] LABS: Alanine Aminotransferase 12 U/L (0-33); Albumin Level 4.3 g/dL (3.5-5.2); Alkaline Phosphatase 53 U/L (35-105); Anion Gap 15.8 (5-19); Aspartate Amino Transferase 14 U/L (0-32); Blood Urea Nitrogen 13 mg/dL (6-20); Carbon Dioxide 23 mmol/L (22-29); Chloride 105 mmol/L (98-107); Creatinine Clr Calc Pharmacy 97.8313; Globulin 2.2 g/dL (1.3-4.6); Glomerular Filtration Rate 87.9 mL/min (90-130); Glucose 110 mg/dL (65-115); Lactate Dehydrogenase 120 U/L (135-214); Osmolality Calculated 291 mOsm/kg (285-295); Potassium 3.8 mmol/L (3.5-5.1); Sodium 140 mmol/L (136-145); Total Bilirubin 0.4 mg/dL (0.15-1.2); Total Protein 6.5 g/dL (6.6-8.7)
[2024-05-06] MEDS: sodium chloride 0.9% 250 ML 75 ML IV (09:03)
[2024-05-06] MEDS: acetaminophen 325 mg Tablet 650 MG PO (09:08)
[2024-05-06] MEDS: diphenhydrAMINE 50 mg/mL SDV 1mL IVP (09:08)
[2024-05-06] MEDS: dexamethasone 20 MG in sodium chloride 0.9% 50 ML 188 MG IV (09:19)
[2024-05-06] MEDS: obinutuzumab 1,000 MG in sodium chloride 0.9% 250 ML 50 MG IV (10:40)
== END 2024-05-06 23:59 | disposition home or self-care (01) ==
PROVIDERS: Internal Medicine; Nurse Practitioner Family; PCP Nurse Practitioner; Visit Provider Internal Medicine Medical Oncology
DX: C91.10 Chronic lymphocytic leukemia of B-cell type not having achieved remission (principal); Z51.11 Encounter for antineoplastic chemotherapy; Z53.9 Procedure and treatment not carried out, unspecified reason
CPT/HCPCS: 36415; 80053; 83615; 85025; 96367; 96375; 96413; 96415; J1100; J1200; J7050; J9301

== ENCOUNTER 2024-06-03 08:19 | Oncology outpatient (recurring) (ONCR) | payer BC, MEDICAID, SELFPAY ==
[2024-06-03 08:41] LABS: Basophils % 0.2 %; Hematocrit 38.4 % (36-47); Lymphocytes # 1.9 10^3/uL (0.8-4.8); Lymphocytes % 37.1 %; Mean Corpuscular HGB Conc 34.6 g/dL (30-55); Mean Corpuscular Hemoglobin 31.7 pg (27-33); Mean Corpuscular Volume 91.4 fl (85-98); Mean Platelet Volume 9.4 fL (7.4-10.4); Monocytes # 0.5 10^3/uL (0.2-0.9); Monocytes % 9.3 %; Neutrophils # 2.64 10^3/uL (1.8-7.7); Nucleated Red Blood Cells % 0 %; Platelet Count 269 10^3/cmm (157-399); Red Cell Distribution Width 11.9 % (12.1-15.1); White Blood Count 5.07 10^3/uL (3.29-11.43)
[2024-06-03 08:59] LABS: Alanine Aminotransferase 16 U/L (0-33); Albumin Level 4.5 g/dL (3.5-5.2); Alkaline Phosphatase 44 U/L (35-105); Anion Gap 18.9 (5-19); Aspartate Amino Transferase 18 U/L (0-32); Blood Urea Nitrogen 12 mg/dL (6-20); Calcium 9.2 mg/dL (8.5-10.5); Carbon Dioxide 20 mmol/L (22-29); Chloride 100 mmol/L (98-107); Globulin 2.3 g/dL (1.3-4.6); Glucose 97 mg/dL (65-115); Lactate Dehydrogenase 227 U/L (135-214); Osmolality Calculated 280 mOsm/kg (285-295); Potassium 3.9 mmol/L (3.5-5.1); Sodium 135 mmol/L (136-145); Total Bilirubin 0.6 mg/dL (0.15-1.2); Total Protein 6.8 g/dL (6.6-8.7)
[2024-06-03 10:05] VITALS: BP 89/67; PULSE 83; RESP 16; TEMP 36.3; O2SAT 99
[2024-06-03] MEDS: diphenhydrAMINE 50 mg/mL SDV 1mL IVP (10:18)
[2024-06-03] MEDS: acetaminophen 325 mg Tablet 650 MG PO (10:18)
[2024-06-03] MEDS: sodium chloride 0.9% 250 ML 75 ML IV (10:18)
[2024-06-03] MEDS: dexamethasone 20 MG in sodium chloride 0.9% 50 ML 188 MG IV (10:20)
[2024-06-03 11:00] VITALS: BP 92/60; PULSE 90; RESP 16; TEMP 36.6; O2SAT 99
[2024-06-03] MEDS: obinutuzumab 1,000 MG in sodium chloride 0.9% 250 ML 32.5 MG IV (11:00)
[2024-06-03 11:30] VITALS: BP 81/51; PULSE 90; RESP 16; TEMP 36.6; O2SAT 98
[2024-06-03 12:00] VITALS: BP 99/65; PULSE 87; RESP 16; TEMP 36.6; O2SAT 98
[2024-06-03 12:30] VITALS: BP 96/68; PULSE 99; RESP 16; TEMP 36.6; O2SAT 99
[2024-06-03 14:23] VITALS: BP 89/58; PULSE 92; RESP 16; TEMP 36; O2SAT 98
== END 2024-06-27 23:59 | disposition home or self-care (01) ==
PROVIDERS: Nurse Practitioner Family; PCP Nurse Practitioner; Visit Provider Internal Medicine Medical Oncology
DX: C91.10 Chronic lymphocytic leukemia of B-cell type not having achieved remission (principal); Z51.11 Encounter for antineoplastic chemotherapy; Z79.899 Other long term (current) drug therapy; Z79.69 Long term (current) use of other immunomodulators and immunosuppressants; Z79.52 Long term (current) use of systemic steroids
CPT/HCPCS: 80053; 83615; 85025; 96375; 96413; 96415; J1100; J1200; J7050; J9301

== ENCOUNTER 2024-07-01 07:47 | Oncology outpatient (recurring) (ONCR) | payer BC, MEDICAID, SELFPAY ==
[2024-07-01 08:19] LABS: Basophils % 0.2 %; Hematocrit 35.3 % (36-47); Lymphocytes # 1.8 10^3/uL (0.8-4.8); Lymphocytes % 38.8 %; Mean Corpuscular HGB Conc 35.1 g/dL (30-55); Mean Platelet Volume 8.9 fL (7.4-10.4); Monocytes # 0.5 10^3/uL (0.2-0.9); Monocytes % 9.7 %; Neutrophils # 2.38 10^3/uL (1.8-7.7); Neutrophils % 51.1 %; Nucleated Red Blood Cells % 0 %; Platelet Count 231 10^3/cmm (157-399); Red Blood Count 3.88 10^6/uL (3.85-5.65); Red Cell Distribution Width 12.5 % (12.1-15.1); White Blood Count 4.66 10^3/uL (3.29-11.43)
[2024-07-01 08:37] LABS: Alanine Aminotransferase 13 U/L (0-33); Albumin Level 4.2 g/dL (3.5-5.2); Alkaline Phosphatase 41 U/L (35-105); Anion Gap 16.2 (5-19); Aspartate Amino Transferase 14 U/L (0-32); Blood Urea Nitrogen 12 mg/dL (6-20); Calcium 8.8 mg/dL (8.5-10.5); Carbon Dioxide 21 mmol/L (22-29); Chloride 106 mmol/L (98-107); Globulin 2.2 g/dL (1.3-4.6); Glucose 104 mg/dL (65-115); Lactate Dehydrogenase 134 U/L (135-214); Osmolality Calculated 288 mOsm/kg (285-295); Potassium 4.2 mmol/L (3.5-5.1); Sodium 139 mmol/L (136-145); Total Bilirubin 0.7 mg/dL (0.15-1.2); Total Protein 6.4 g/dL (6.6-8.7)
[2024-07-01] MEDS: acetaminophen 325 mg Tablet 650 MG PO (09:39)
[2024-07-01] MEDS: diphenhydrAMINE 50 mg/mL SDV 1mL IVP (09:40)
[2024-07-01] MEDS: sodium chloride 0.9% 250 ML 75 ML IV (09:40)
[2024-07-01] MEDS: dexamethasone 20 MG in sodium chloride 0.9% 50 ML 188 MG IV (09:48)
[2024-07-01 10:35] VITALS: BP 98/62; PULSE 77; RESP 16; TEMP 36.4; O2SAT 96
[2024-07-01] MEDS: obinutuzumab 1,000 MG in sodium chloride 0.9% 250 ML 30 MG IV (10:35)
[2024-07-01 11:05] VITALS: BP 90/59; PULSE 64; RESP 15; TEMP 36.4; O2SAT 97
[2024-07-01 11:35] VITALS: BP 89/60; PULSE 77; RESP 17; TEMP 36.9; O2SAT 98
[2024-07-01 12:05] VITALS: BP 91/62; PULSE 77; RESP 16; TEMP 36.2; O2SAT 98
[2024-07-01 13:57] VITALS: BP 98/66; PULSE 94; RESP 16; TEMP 36.2; O2SAT 95
== END 2024-07-27 23:59 | disposition home or self-care (01) ==
PROVIDERS: Nurse Practitioner Family; PCP Nurse Practitioner; Visit Provider Internal Medicine Medical Oncology
DX: Z51.11 Encounter for antineoplastic chemotherapy (principal); C91.10 Chronic lymphocytic leukemia of B-cell type not having achieved remission; Z79.899 Other long term (current) drug therapy; Z79.69 Long term (current) use of other immunomodulators and immunosuppressants; Z79.52 Long term (current) use of systemic steroids
CPT/HCPCS: 80053; 83615; 85025; 96367; 96375; 96413; 96415; J1100; J1200; J7050; J9301

== ENCOUNTER → 2024-08-17 11:14 | Outpatient (BNVA) | payer BC, MEDICAID, SELFPAY | PROVIDERS: PCP Nurse Practitioner; Visit Provider Nurse Practitioner | DX: E55.9 Vitamin D deficiency, unspecified (principal); M25.50 Pain in unspecified joint; J30.2 Other seasonal allergic rhinitis | CPT/HCPCS: 82306; 85651; 86003; 86008; 86038; 86140; 86431 ==

== ENCOUNTER 2024-09-08 10:25 | Oncology outpatient (recurring) (ONCR) | payer BC, MEDICAID, SELFPAY ==
[2024-09-08 10:37] LABS: Basophils % 0.4 %; Eosinophils % 0.2 %; Lymphocytes # 2.4 10^3/uL (0.8-4.8); Lymphocytes % 43.6 %; Mean Corpuscular HGB Conc 34.9 g/dL (30-55); Mean Corpuscular Hemoglobin 33.1 pg (27-33); Mean Corpuscular Volume 94.9 fl (85-98); Mean Platelet Volume 8.9 fL (7.4-10.4); Monocytes # 0.4 10^3/uL (0.2-0.9); Monocytes % 8.1 %; Neutrophils # 2.58 10^3/uL (1.8-7.7); Neutrophils % 47.7 %; Nucleated Red Blood Cells % 0 %; Platelet Count 232 10^3/cmm (157-399); Red Blood Count 4.11 10^6/uL (3.85-5.65); White Blood Count 5.41 10^3/uL (3.29-11.43)
[2024-09-08 11:04] LABS: Alanine Aminotransferase 18 U/L (0-33); Albumin Level 4.6 g/dL (3.5-5.2); Alkaline Phosphatase 48 U/L (35-105); Anion Gap 14.2 (5-19); Aspartate Amino Transferase 14 U/L (0-32); Blood Urea Nitrogen 13 mg/dL (6-20); Carbon Dioxide 26 mmol/L (22-29); Chloride 105 mmol/L (98-107); Globulin 1.5 g/dL (1.3-4.6); Glomerular Filtration Rate 87.9 mL/min (90-130); Glucose 101 mg/dL (65-115); Lactate Dehydrogenase 136 U/L (135-214); Osmolality Calculated 292 mOsm/kg (285-295); Potassium 4.2 mmol/L (3.5-5.1); Sodium 141 mmol/L (136-145); Total Bilirubin 0.5 mg/dL (0.15-1.2); Total Protein 6.1 g/dL (6.6-8.7)
== END 2024-09-26 23:59 | disposition home or self-care (01) ==
PROVIDERS: Nurse Practitioner Family; PCP Nurse Practitioner; Visit Provider Internal Medicine Medical Oncology
DX: Z53.9 Procedure and treatment not carried out, unspecified reason; C91.10 Chronic lymphocytic leukemia of B-cell type not having achieved remission; Z79.899 Other long term (current) drug therapy
CPT/HCPCS: 36415; 80053; 83615; 85025

== ENCOUNTER 2024-10-08 09:17 | Oncology outpatient (recurring) (ONCR) | payer BC, MEDICAID, SELFPAY ==
[2024-10-08 09:40] LABS: Basophils % 0.4 %; Eosinophils % 0.7 %; Hematocrit 37.2 % (36-47); Lymphocytes # 1.7 10^3/uL (0.8-4.8); Lymphocytes % 31.3 %; Mean Corpuscular HGB Conc 34.9 g/dL (30-55); Mean Corpuscular Volume 94.4 fl (85-98); Mean Platelet Volume 8.9 fL (7.4-10.4); Monocytes # 0.5 10^3/uL (0.2-0.9); Monocytes % 9.4 %; Neutrophils # 3.21 10^3/uL (1.8-7.7); Nucleated Red Blood Cells % 0 %; Platelet Count 249 10^3/cmm (157-399); Red Blood Count 3.94 10^6/uL (3.85-5.65); Red Cell Distribution Width 11.5 % (12.1-15.1); White Blood Count 5.53 10^3/uL (3.29-11.43)
[2024-10-08 09:58] LABS: Alanine Aminotransferase 14 U/L (0-33); Albumin Level 4.1 g/dL (3.5-5.2); Alkaline Phosphatase 44 U/L (35-105); Anion Gap 14.2 (5-19); Aspartate Amino Transferase 15 U/L (0-32); Blood Urea Nitrogen 11 mg/dL (6-20); Calcium 9.2 mg/dL (8.5-10.5); Carbon Dioxide 26 mmol/L (22-29); Chloride 103 mmol/L (98-107); Creatinine Clr Calc Pharmacy 98.9082; Globulin 1.9 g/dL (1.3-4.6); Glomerular Filtration Rate 87.9 mL/min (90-130); Glucose 108 mg/dL (65-115); Lactate Dehydrogenase 132 U/L (135-214); Osmolality Calculated 288 mOsm/kg (285-295); Potassium 4.2 mmol/L (3.5-5.1); Sodium 139 mmol/L (136-145); Total Bilirubin 0.4 mg/dL (0.15-1.2); Uric Acid 3.1 mg/dL (2.4-5.7)
== END 2024-10-27 23:59 | disposition home or self-care (01) ==
PROVIDERS: Internal Medicine Hematology & Oncology; PCP Nurse Practitioner; Visit Provider Internal Medicine Medical Oncology
DX: C91.10 Chronic lymphocytic leukemia of B-cell type not having achieved remission (principal)
CPT/HCPCS: 36415; 80053; 83615; 84550; 85025

== ENCOUNTER 2024-11-10 14:08 | Oncology outpatient (recurring) (ONCR) | payer BC, MEDICAID, SELFPAY ==
[2024-11-10 14:39] LABS: Basophils % 0.2 %; Eosinophils % 0.2 %; Hematocrit 36.4 % (36-47); Lymphocytes # 1.4 10^3/uL (0.8-4.8); Lymphocytes % 30.5 %; Mean Corpuscular HGB Conc 35.4 g/dL (30-55); Mean Corpuscular Volume 93.1 fl (85-98); Mean Platelet Volume 8.9 fL (7.4-10.4); Monocytes # 0.4 10^3/uL (0.2-0.9); Monocytes % 8.8 %; Neutrophils # 2.75 10^3/uL (1.8-7.7); Neutrophils % 60.3 %; Nucleated Red Blood Cells % 0 %; Platelet Count 214 10^3/cmm (157-399); Red Blood Count 3.91 10^6/uL (3.85-5.65); Red Cell Distribution Width 11.6 % (12.1-15.1); White Blood Count 4.56 10^3/uL (3.29-11.43)
[2024-11-10 14:53] LABS: Alanine Aminotransferase 10 U/L (0-33); Albumin Level 4.4 g/dL (3.5-5.2); Alkaline Phosphatase 45 U/L (35-105); Aspartate Amino Transferase 14 U/L (0-32); Blood Urea Nitrogen 12 mg/dL (6-20); Calcium 9.3 mg/dL (8.5-10.5); Carbon Dioxide 27 mmol/L (22-29); Chloride 103 mmol/L (98-107); Glomerular Filtration Rate 87.9 mL/min (90-130); Glucose 111 mg/dL (65-115); Lactate Dehydrogenase 137 U/L (135-214); Osmolality Calculated 286 mOsm/kg (285-295); Sodium 138 mmol/L (136-145); Total Bilirubin 0.7 mg/dL (0.15-1.2); Total Protein 6.4 g/dL (6.6-8.7)
== END 2024-11-27 23:59 | disposition home or self-care (01) ==
PROVIDERS: Nurse Practitioner Family; PCP Nurse Practitioner; Visit Provider Internal Medicine Medical Oncology
DX: C91.10 Chronic lymphocytic leukemia of B-cell type not having achieved remission (principal)
CPT/HCPCS: 36415; 80053; 83615; 85025

== ENCOUNTER 2024-12-30 12:38 | Oncology outpatient (recurring) (ONCR) | payer BC, MEDICAID, SELFPAY ==
[2024-12-30 13:13] LABS: Basophils % 0.4 %; Eosinophils # 0.1 10^3/uL (0.0-0.8); Eosinophils % 1.1 %; Hematocrit 37.2 % (36-47); Lymphocytes # 1.6 10^3/uL (0.8-4.8); Lymphocytes % 36.4 %; Mean Corpuscular Hemoglobin 34.6 pg (27-33); Mean Corpuscular Volume 96.1 fl (85-98); Mean Platelet Volume 8.9 fL (7.4-10.4); Monocytes # 0.4 10^3/uL (0.2-0.9); Monocytes % 8.9 %; Neutrophils # 2.39 10^3/uL (1.8-7.7); Nucleated Red Blood Cells % 0 %; Platelet Count 274 10^3/cmm (157-399); Red Blood Count 3.87 10^6/uL (3.85-5.65); Red Cell Distribution Width 11.6 % (12.1-15.1); White Blood Count 4.51 10^3/uL (3.29-11.43)
[2024-12-30 13:26] LABS: Alanine Aminotransferase 11 U/L (0-33); Albumin Level 4.3 g/dL (3.5-5.2); Alkaline Phosphatase 50 U/L (35-105); Anion Gap 14.8 (5-19); Aspartate Amino Transferase 16 U/L (0-32); Blood Urea Nitrogen 9 mg/dL (6-20); Calcium 9.5 mg/dL (8.5-10.5); Carbon Dioxide 24 mmol/L (22-29); Chloride 102 mmol/L (98-107); Globulin 2.3 g/dL (1.3-4.6); Glomerular Filtration Rate 87.9 mL/min (90-130); Glucose 100 mg/dL (65-115); Lactate Dehydrogenase 132 U/L (135-214); Osmolality Calculated 281 mOsm/kg (285-295); Potassium 4.8 mmol/L (3.5-5.1); Sodium 136 mmol/L (136-145); Total Bilirubin 0.6 mg/dL (0.15-1.2); Total Protein 6.6 g/dL (6.6-8.7)
[2024-12-30 13:52] LABS: Estradiol 78.9 pg/mL; Follicle Stimulating Hormone 47.7 mIU/mL; Luteinizing Hormone 59.6 mIU/mL (0.5-41.7)
[2024-12-31 15:04] LABS: Beta-2-Microglobulin 1.49 mg/L (< OR = 2.51)
== END 2025-01-25 23:59 | disposition home or self-care (01) ==
PROVIDERS: Nurse Practitioner; PCP Nurse Practitioner; Visit Provider Internal Medicine
DX: C91.10 Chronic lymphocytic leukemia of B-cell type not having achieved remission (principal); N91.2 Amenorrhea, unspecified
CPT/HCPCS: 36415; 80053; 82232; 82670; 83001; 83002; 83615; 85025

== ENCOUNTER 2025-07-27 13:02 | Oncology outpatient (recurring) (ONCR) | payer BC, MEDICAID, SELFPAY ==
[2025-07-27 13:36] LABS: Hematocrit 35.7 % (36-47); Hemoglobin 12.40 g/dL (11.27-16.99); Mean Corpuscular HGB Conc 34.7 g/dL (30-55); Mean Corpuscular Hemoglobin 32.6 pg (27-33); Mean Corpuscular Volume 93.9 fl (85-98); Nucleated Red Blood Cells % 0 %; Platelet Count 239 10^3/cmm (157-399); Red Blood Count 3.80 10^6/uL (3.85-5.65); White Blood Count 5.62 10^3/uL (3.29-11.43)
[2025-07-27 14:04] LABS: Alanine Aminotransferase 13 U/L (0-33); Albumin Level 4.3 g/dL (3.5-5.2); Alkaline Phosphatase 51 U/L (35-105); Anion Gap 14.0 (5-19); Aspartate Amino Transferase 14 U/L (0-32); Blood Urea Nitrogen 15 mg/dL (6-20); Calcium 8.8 mg/dL (8.5-10.5); Carbon Dioxide 23 mmol/L (22-29); Chloride 106 mmol/L (98-107); Creatinine Clr Calc Pharmacy 88.1238; Follicle Stimulating Hormone 57.9 mIU/mL; Globulin 2.1 g/dL (1.3-4.6); Glucose 94 mg/dL (65-115); Osmolality Calculated 289 mOsm/kg (285-295); Potassium 4.0 mmol/L (3.5-5.1); Sodium 139 mmol/L (136-145); Total Protein 6.4 g/dL (6.6-8.7)
== END 2025-07-27 23:59 | disposition home or self-care (01) ==
PROVIDERS: PCP Nurse Practitioner; Visit Provider Nurse Practitioner
DX: C91.10 Chronic lymphocytic leukemia of B-cell type not having achieved remission (principal); N91.2 Amenorrhea, unspecified
CPT/HCPCS: 36415; 80053; 82670; 83001; 83002; 83615; 85025